=== PATIENT | female | born 1970 | race African-American/Black ===

== ENCOUNTER → 2019-10-01 | Outpatient (CLI) | payer OTHER ==
--- NOTE | 2019-10-01 10:45 | RAD ---
TRANSABDOMINAL AND TRANSVAGINAL SONOGRAPHY OF THE PELVIS Clinical indications: Irregular periods. IUD. Complex right adnexal mass seen on outside pelvic sonogram. COMPARISON: None available. Transabdominal sonography: The uterus is anteverted in position. The endometrial canal is poorly visualized. Neither ovary is visualized. Therefore, transvaginal sonography will be performed. Transvaginal sonography: IUD is seen within the central and lower aspect of the endometrial canal of the uterus. No uterine mass or fibroid is seen. The endometrial canal measures 3 mm in thickness. Nabothian cyst of the upper cervix is seen. The right ovary measures 3.3 cm and 1.8 cm and 3.1 cm in size. Within the right ovary is a simple appearing cyst measuring 1.9 cm in size. Color Doppler flow is seen within the right ovary. The left ovary measures 1.5 cm and 2.7 cm and 2.6 cm in size. The left ovary contains follicular cysts. The largest measures 0.9 cm. Color Doppler flow is seen within left ovary. No other adnexal mass is seen. No free fluid is evident. IMPRESSION: 1.9 cm simple cyst of the right ovary. Compare to previous outside ultrasound study. Electronically signed by: Trent Hester MD (10/01/2019 10:42 AM) [facility]
== END | disposition home or self-care (01) ==
LOC: US 09:17
PROVIDERS: ATTEND Nurse Practitioner Family
DX: N83.292 Other ovarian cyst, left side (principal); N83.291 Other ovarian cyst, right side
CPT/HCPCS: 76830; 76856

== ENCOUNTER 2021-05-28 11:58 | Emergency (ER) | payer OTHER ==
[~2021-05-28] VITALS: Ht 162.6 cm; Wt 75.9 kg
--- NOTE | 2021-05-28 12:36 | PHYS DOC ---
Past History Past Surgical History: Other Additional Past Surgical Histo: breast implants, hemmorhoid removal General Adult EDM: Chief Complaint: ABDOMINAL PAIN HPI: HPI: Patient is a 51-year-old female who presents with lower abdominal cramping that woke her up at 230 this morning. Patient states "I got up to use the restroom and started having cold and hot sweats, I got really dizzy and nauseous, and I passed out". Patient still reporting lower abdominal cramping along with dizziness and nausea. Denies chest pain, shortness of breath, recent illness. Review of Systems: Review of Systems: Constitutional: Denies fever or chills Eyes: Denies change in visual acuity HENT: Denies nasal congestion or sore throat Respiratory: Denies cough or shortness of breath Cardiovascular: Denies chest pain or edema GI: Denies abdominal pain, nausea, vomiting, bloody stools or diarrhea : Denies dysuria Musculoskeletal: Denies back pain or joint pain Integument: Denies rash Neurologic: Denies headache, focal weakness or sensory changes Endocrine: Denies polyuria or polydipsia Lymphatic: Denies swollen glands Psychiatric: Denies depression or anxiety Allergies: Allergies: Allergies Coded Allergies Type Severity Reaction Last Updated Verified No Known Drug Allergies 05/28/21 No Physical Exam: PE: Constitutional: Well developed, well nourished, no acute distress, non-toxic appearance. [] HENT: Normocephalic, atraumatic, bilateral external ears normal, oropharynx moist, no oral exudates, nose normal. [] Eyes: PERRLA, EOMI, conjunctiva normal, no discharge. [] Neck: Normal range of motion, no tenderness, supple, no stridor. [] Cardiovascular:Heart rate regular rhythm, no murmur [] Lungs & Thorax: Bilateral breath sounds clear to auscultation [] Abdomen: Bowel sounds normal, soft, no tenderness, no masses, no pulsatile masses. [] Skin: Warm, dry, no erythema, no rash. [] Back: No tenderness, no CVA tenderness. [] Extremities: No tenderness, no cyanosis, no clubbing, ROM intact, no edema. [] Neurologic: Alert and oriented X 3, normal motor function, normal sensory function, no focal deficits noted. [] Psychologic: Affect normal, judgement normal, mood normal. [] Current Patient Data: Vital Signs: Vital Signs Date Time Temp Pulse Resp B/P (MAP) Pulse Ox O2 Delivery O2 Flow Rate FiO2 05/28/21 12:09 98.0 70 15 156/84 (108) 99 Room Air EKG: EKG: Sinus Rhythm, HR 66 BPM. Read at 1246[] Radiology/Procedures: Radiology/Procedures: []EXAM: Head CT without contrast. HISTORY: Syncope. TECHNIQUE: Computed tomographic images of the head were obtained without contrast. *One or more of the following individualized dose reduction techniques were u tilized for this examination: 1. Automated exposure control. 2. Adjustment of the mA and/or kV according to patient size. 3. Use of iterative reconstruction technique. COMPARISON: None. FINDINGS: There is no acute or subacute extra-axial or intraparenchymal hemorrhage. There is no mass effect or midline shift. There is no hydrocephalus. The healy-white matter differentiation pattern is intact. There is increased hazy along the tentorium and falx due to venous sinuses. This is within physiologic limits. The visualized portions of the orbits, paranasal sinuses and mastoid air cells are unremarkable. No suspicious calvarial lesion is seen. IMPRESSION: No acute intracranial findings. Electronically signed by: Shey Park MD (05/28/2021 1:31 PM) [id number] EXAM: Abdomen and pelvis CT without intravenous contrast. HISTORY: Syncope. TECHNIQUE: Computed tomographic images of the abdomen and pelvis were obtained without contrast. Multiplanar reformatting was performed. *One or more of the following individualized dose reduction techniques were utilized for this examination: 1. Automated exposure control. 2. Adjustment of the mA and/or kV according to patient size. 3. Use of iterative reconstruction technique. COMPARISON: None. FINDINGS: Evaluation of the lower thorax demonstrates no infiltrate or pleural effusion. No hepatic lesion is seen. The gallbladder is unremarkable. The pancreas, spleen, adrenal glands and right kidney are unremarkable. There is a partially duplicated left renal collecting system. There is a large amount of stool throughout the colon and within the rectal vault. There is a prominent air and fluid-filled proximal duodenum. There are additional nonspecific fluid- filled loops of small bowel throughout the abdomen. There is no transition point to suggest small bowel obstruction. The bladder is unremarkable. There is slight lobulation along the superior uterine fundus to the right of midline, possibly due to a fibroid or the right ovary. The aorta is normal in caliber. There is no lymphadenopathy. There is degenerative change involving the spine, primarily at L2-L3. There is no acute osseous finding. IMPRESSION: 1. Large amount of stool throughout the colon and rectal vault. Correlate for constipation. 2. Mildly distended proximal duodenum extending to the midline. This may be physiologic. Correlate for possible superior mesenteric artery syndrome. This can be better characterized with a postcontrast exam if there is clinical concern. Electronically signed by: Shey Park MD (05/28/2021 1:57 PM) [id number] Heart Score: C/O Chest Pain: No Risk Factors: Risk Factors: DM, Current or recent (<one month) smoker, HTN, HLP, family history of CAD, obesity. Risk Scores: Score 0 - 3: 2.5% MACE over next 6 weeks - Discharge Home Score 4 - 6: 20.3% MACE over next 6 weeks - Admit for Clinical Observation Score 7 - 10: 72.7% MACE over next 6 weeks - Early Invasive Strategies Course & Med Decision Making: Course & Med Decision Making Pertinent Labs and Imaging studies reviewed. (See chart for details) [] 51-year-old female presents with lower abdominal cramping, dizziness, nausea since 230 this morning. Patient reports syncopal episode. Denies injury or pain. Patient given 4 of morphine and 4 of Zofran for pain and nausea. All labs unremarkable. Urine is negative for infection CT head is unremarkable. CT of abdomen pelvis shows large amount of stool. Patient most likely has constipation. Patient most likely vasovagal while having a bowel movement which caused syncopal episode. Discussed results with patient. Patient given mag citrate to help with constipation. Patient should increase her water intake. Advised patient to call PCP make a follow-up appointment in the next 2 to 3 days. Discussed return precautions in length with patient. Patient states that she understands discharge instructions. Patient is hemodynamically stable upon disposition. Dragon Disclaimer: Dragon Disclaimer: This electronic medical record was generated, in whole or in part, using a voice recognition dictation system. 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 CT of your head was negative. All of your labs were unremarkable. CT of your abdomen did show constipation. You most likely vasovagal while having a bowel movement which caused your syncopal episode. I am sending you home with mag citrate which helps with constipation. If you are still having trouble with having a bowel movement you may repeat dose of mag citrate. Please call your PCP and make a follow-up appointment in the next 2 to 3 days for further evaluation. Return to the emergency room with worsening symptoms or concerns. EMERGENCY DEPARTMENT GENERAL DISCHARGE INSTRUCTIONS Thank you for coming to [facility] (ED) today and trusting us with you care. We trust that you had a positivie experience in our Emergency Department. If you wish to speak to the department management, you may call the director at [phone]. YOUR FOLLOW UP INSTRUCTIONS ARE FOLLOWS: 1. Do you have a private Doctor? If you do not have a private doctor, please ask for a resource list of physicians or clinics that may be able to assist you with follow up care. 2. The Emergency Physician has interpreted your x-rays. The X-Ray specialist will also review them. If there is a change in the findings, you will be notified in 48 hours when at all possible. 3. A lab test or culture has been done, your results will be reviewed and you will be notified if you need a change in treatment. ADDITIONAL INSTRUCTIONS AND INFORMATION: 1. Your care today has been supervised by a physician who is specially trained in emergency care. Many problems require more than one evaluation for a complete diagnosis and treatment. We recommend that you schedule your follow up appointment as recommended to ensure complete treatment of you illness or injury. If you are unable to obtain follow up care and continue to have a problem, or if your condition worsens, we recommend that you return to the ED. 2. We are not able to safely determine your condition over the phone nor are we able to give sound medical advice over the phone. For these safety reasons, if you call for medical advice we will ask you to come to the ED for further evaluation. 3. If you have any questions regarding these discharge instructions please call the ED at [phone]. SAFETY INFORMATION: In the interest of safety, wellness, and injury prevention; we encourage you to wear your sealbelt, if you smoke; quite smoking, and we encourage family to use a protective helmet for bicycling and other sporting events that present an increased risk for head injury. IF YOUR SYMPTOMS WORSEN OR NEW SYMPTOMS DEVELOP, OR YOU HAVE CONCERNS ABOUT YOUR CONDITION; OR IF YOUR CONDITION WORSENS WHILE YOU ARE WAITING FOR YOUR FOLLOW UP APPOINTMENT; EITHER CONTACT YOUR PRIMARY CARE DOCTOR, THE PHYSICIAN WHOSE NAME AND NUMBER YOU WERE GIVEN, OR RETURN TO THE ED IMMEDIATELY. ERIKA MENDOZA APRN May 28, 2021 12:36
[2021-05-28] MEDS ORDERED: MORPHINE SULFATE 4 MG/ML DISP.SYRIN. IV ONE (12:45)
[2021-05-28] MEDS ORDERED: IV NORMAL SALINE 1,000ML 1,000 ML IV ONE (12:45)
[2021-05-28] MEDS ORDERED: ONDANSETRON PF 4 MG/2 ML VIAL. IVP ONE (12:45)
--- NOTE | 2021-05-28 13:34 | RAD ---
EXAM: Head CT without contrast. HISTORY: Syncope. TECHNIQUE: Computed tomographic images of the head were obtained without contrast. *One or more of the following individualized dose reduction techniques were utilized for this examina tion: 1. Automated exposure control. 2. Adjustment of the mA and/or kV according to patient size. 3. Use of iterative reconstruction technique. COMPARISON: None. FINDINGS: There is no acute or subacute extra-axial or intraparenchymal hemorrhage. There is no mass effect or midline shift. There is no hydrocephalus. The healy-white matter differentiation pattern is intact. There is increased hazy along the tentorium and falx due to venous sinuses. This is within physiologic limits. The visualized portions of the orbits, paranasal sinuses and mastoid air cells are unremarkable. No s uspicious calvarial lesion is seen. IMPRESSION: No acute intracranial findings. Electronically signed by: Shey Park MD (05/28/2021 1:31 PM) [id number]
[2021-05-28 13:50] LABS: BASO % 1 % (0-3); EOS # 0.1 x10^3/uL (0.0-0.7); EOS % 1 % (0-3); HEMATOCRIT 42.3 % (36.0-47.0); HEMOGLOBIN 13.9 g/dL (12.0-15.5); LYMPH # 2.2 x10^3/uL (1.0-4.8); LYMPH % 32 % (24-48); MEAN CORPUSCULAR HEMOGLOBIN 29 pg (25-35); MEAN CORPUSCULAR HGB CONC 33 g/dL (31-37); MEAN CORPUSCULAR VOLUME 88 fL (79-100); MONO # 0.9 x10^3/uL (0.0-1.1); MONO % 13 % (0-9); NEUT # 3.5 x10^3uL (1.8-7.7); NEUT % 53 % (31-73); PLATELET COUNT 156 x10^3/uL (140-400); RED BLOOD COUNT 4.79 x10^6/uL (3.50-5.40); RED CELL DISTRIBUTION WIDTH 12.8 % (11.5-14.5); WHITE BLOOD COUNT 6.7 x10^3/uL (4.0-11.0)
[2021-05-28 13:51] LABS: CALCIUM 9.6 mg/dL (8.5-10.1); CREATININE 1.1 mg/dL (0.6-1.0); GFR 62.9; POTASSIUM 4.4 mmol/L (3.5-5.1)
--- NOTE | 2021-05-28 14:00 | RAD ---
EXAM: Abdomen and pelvis CT without intravenous contrast. HISTORY: Syncope. TECHNIQUE: Computed tomographic images of the abdomen and pelvis were obtained without contrast. Mult iplanar reformatting was performed. *One or more of the following individualized dose reduction techniques were utilized for this examina tion: 1. Automated exposure control. 2. Adjustment of the mA and/or kV according to patient size. 3. Use of iterative reconstruction technique. COMPARISON: None. FINDINGS: Evaluation of the lower thorax demonstrates no infiltrate or pleural effusion. No hepatic l esion is seen. The gallbladder is unremarkable. The pancreas, spleen, adrenal glands and right kidney are unremarkable. There is a partially duplicated left renal collecting system. There is a large alfred unt of stool throughout the colon and within the rectal vault. There is a prominent air and fluid-courtney led proximal duodenum. There are additional nonspecific fluid-filled loops of small bowel throughout the abdomen. There is no transition point to suggest small bowel obstruction. The bladder is unremark able. There is slight lobulation along the superior uterine fundus to the right of midline, possibly due to a fibroid or the right ovary. The aorta is normal in caliber. There is no lymphadenopathy. The re is degenerative change involving the spine, primarily at L2-L3. There is no acute osseous finding. IMPRESSION: 1. Large amount of stool throughout the colon and rectal vault. Correlate for constipation. 2. Mildly distended proximal duodenum extending to the midline. This may be physiologic. Correlate fo r possible superior mesenteric artery syndrome. This can be better characterized with a postcontrast exam if there is clinical concern. Electronically signed by: Shey Park MD (05/28/2021 1:57 PM) [id number]
--- NOTE | 2021-05-28 14:01 | EKG ---
[facility] ED [facility] [address] [place] [id number] Test Date: 2021-05-28 Test Time: 12:40:59 Pat Name: MICHAEL VALVERDE Department: Room: Gender: F Control Systems Technician: NORMA : 1970 Requested By: ERIKA MENDOZA Order Number: [id number] Reading MD: Didier Tang Measurements Intervals [place] Rate: 66 P: 49 WV: 190 QRS: 66 QRSD: 86 T: 11 QT: 366 QTc: 385 Interpretive Statements SINUS RHYTHM NORMAL ECG RI6.02 No previous ECG available for comparison Electronically Signed On 05-28-2021 16:32:59 CDT by Didier Tang
[2021-05-28 14:04] LABS: ALBUMIN 3.5 g/dL (3.4-5.0); ALBUMIN/GLOBULIN RATIO 0.9 (1.0-1.7); MAGNESIUM 2.1 mg/dL (1.8-2.4); TOTAL BILIRUBIN 0.4 mg/dL (0.2-1.0); TOTAL PROTEIN 7.5 g/dL (6.4-8.2)
[2021-05-28 14:17] LABS: BACTERIA,URINE 0 /HPF (0-FEW); BILIRUBIN,URINE NEG (NEG); CLARITY,URINE CLEAR; COLOR,URINE YELLOW; GLUCOSE,URINE NEG (NEG); NITRITE,URINE NEG (NEG); RBC,URINE 0 /HPF (0-2); SQUAMOUS EPITHELIAL CELL,UR FEW /LPF; UROBILINOGEN,URINE 0.2 mg/dL (0.2 mg/dL); WBC,URINE OCC /HPF (0-4)
[2021-05-28 14:22] LABS: U PREG PATIENT NEGATIVE (NEG)
[2021-05-28 14:45] VITALS: BP 122/78
[2021-05-28] MEDS ORDERED: MAGNESIUM CITRATE 296 ML SOLUTION. ONE (14:55)
[2021-05-28] MEDS ORDERED: MAGNESIUM CITRATE 296 ML SOLUTION. PO ONE (15:15)
== END 2021-05-28 15:03 | disposition home or self-care (01) ==
LOC: ER 11:58
DX: K59.00 Constipation, unspecified (principal); R55 Syncope and collapse; R11.0 Nausea; Z98.890 Other specified postprocedural states
CPT/HCPCS: 36415; 70450; 74176; 80053; 81001; 81025; 83735; 83880; 84484; 85025; 93005; 96361; 96374; 96375; 99285; J2270; J2405; J7030